=== PATIENT | female | born 1995 | race African-American/Black ===

== ENCOUNTER 2024-04-19 00:31 | Emergency (ER) | payer OTHER ==
[2024-04-19 00:43] VITALS: BP 127/86; PULSE 85; RESP 18; TEMP 98.6; BMI 33.4
[2024-04-19] MEDS: ACETAMINOPHEN 325 MG TABLET (FP) PO ONE (01:26)
[2024-04-19] MEDS ORDERED: ACETAMINOPHEN 325 MG TABLET (FP) ONE (01:26)
[2024-04-19 02:25] LABS: THROAT:GRP A STREP NOT DETECTED (NOTDETECTED)
== END 2024-04-19 03:00 | disposition home or self-care (01) ==
LOC: JER 00:31
DX: R05.1 Acute cough (principal); J02.9 Acute pharyngitis, unspecified; R09.89 Other specified symptoms and signs involving the circulatory and respiratory systems; R19.7 Diarrhea, unspecified; Z20.822 Contact with and (suspected) exposure to COVID-19
CPT/HCPCS: 0241U-QW; 87651; 99283-25